=== PATIENT | female | born 1930 | race Two or more races ===

== ENCOUNTER 2016-03-26 17:11 | Emergency (ER) | payer MEDICARE, OTHER ==
[~2016-03-26] VITALS: Ht 160 cm; Wt 50.8 kg
[2016-03-26 17:24] VITALS: BP 136/80
[2016-03-26] MEDS ORDERED: ACETAMINOPHEN ES 500 MG TABLET PO ONE (18:00)
[2016-03-26] MEDS ORDERED: ACETAMINOPHEN ES 500 MG TABLET ONE (18:08)
== END 2016-03-26 19:34 | disposition home or self-care (01) ==
LOC: ER 17:17
DX: S09.90XA Unspecified injury of head, initial encounter (principal); R51 Headache; I10 Essential (primary) hypertension; W18.39XA Other fall on same level, initial encounter; Y93.E1 Activity, personal bathing and showering; Y92.091 Bathroom in other non-institutional residence as the place of occurrence of the external cause; Y99.9 Unspecified external cause status
CPT/HCPCS: 70450; 71010; 99284; A4606; A6402; A6403; Z7610